=== PATIENT | male | born 1940 ===

== ENCOUNTER 2023-01-04 06:33 | Emergency (ER) | payer MEDICARE, BC ==
[~2023-01-04] VITALS: Ht 167.6 cm; Wt 73.6 kg
[2023-01-04 06:45] VITALS: BP 103/60
--- NOTE | 2023-01-04 06:50 | NUR ---
PER SO PATIENT DROVE FROM [place] TO HIS EX GIRL FRIEND'S HOUSE. EX GIRLFRIEND THEN CONTACTED SO TO BRING PATIENT HERE, PER SO PATEINT IS "FOGGY BRAINED'.
--- NOTE | 2023-01-04 07:04 | NUR ---
CONTACT DIAZ IRBY AT [phone]
[2023-01-04 09:02] LABS: CLARITY,URINE CLEAR (Clear); COLOR,URINE YELLOW (Yellow); GLUCOSE, URINE NEGATIVE (Neg); KETONES,URINE NEGATIVE (Neg); LEUKOCYTE ESTERASE ,URINE NEGATIVE (Neg); NITRITES, URINE NEGATIVE (Neg); OCCULT BLOOD,URINE NEGATIVE (Neg); PH,URINE 5.5 (4.8-8.0); PROTEIN,URINE NEGATIVE (Neg); UROBILINOGEN,URINE 0.2 E.U/dL (0.2-1.0)
[2023-01-04 09:07] LABS: UA COLLECTION TYPE VOIDED
[2023-01-04 09:39] LABS: BASOPHILS # (AUTO) 0.1 X10'3 (0-0.2); BASOPHILS % (AUTO) 0.7 % (0-1); EOSINOPHILS # (AUTO) 0.1 X10'3 (0-0.9); EOSINOPHILS % (AUTO) 0.7 % (0-6); HEMATOCRIT 43.3 % (42.0-52.0); HEMOGLOBIN 14.6 g/dl (14.0-17.9); LYMPHOCYTES # (AUTO) 1.1 X10'3 (1.1-4.8); LYMPHOCYTES % (AUTO) 13.8 % (21-51); MEAN CORPUSCULAR HEMOGLOBIN 31.2 PG (27.0-31.0); MEAN CORPUSCULAR HGB CONC 33.8 g/dL (33.0-36.5); MEAN CORPUSCULAR VOLUME 92.3 FL (78-98); MEAN PLATELET VOLUME 7.1 FL (7.4-10.4); MONOCYTES # (AUTO) 0.7 X10'3 (0-0.9); MONOCYTES % (AUTO) 8.6 % (2-12); NEUTROPHILS # (AUTO) 6.3 X10'3 (1.8-7.7); NEUTROPHILS % (AUTO) 76.2 % (42-75); PLATELET COUNT 159 X10'3 (140-440); RED BLOOD COUNT 4.69 X10'6 (4.70-6.10); RED CELL DISTRIBUTION WIDTH 13.9 % (11.5-14.5); WHITE BLOOD COUNT 8.3 X10'3 (4.5-11.0)
[2023-01-04 09:48] LABS: ALANINE AMINOTRANSFERASE 30 U/L (12-78); ALBUMIN 4.3 G/DL (3.4-5.0); ALBUMIN/GLOBULIN RATIO 1.5 (1.1-1.5); ALKALINE PHOSPHATASE 90 IU/L (46-116); ANION GAP 9 (8-16); ASPARTATE AMINO TRANSFERASE 19 U/L (10-37); BILIRUBIN,TOTAL 0.7 MG/DL (0.1-1.0); BLOOD UREA NITROGEN 32 MG/DL (7-18); BUN/CREATININE RATIO 15.5 (5.4-32.0); CALCIUM 9.4 MG/DL (8.5-10.1); CHLORIDE 109 MMOL/L (99-107); CREATININE 2.07 MG/DL (0.60-1.10); ETHANOL < 0.010 GM/DL (0.0-0.010); GLUCOSE 121 MG/DL (70-104); LIPASE 175 U/L (73-393); POTASSIUM 4.3 MMOL/L (3.5-5.1); SODIUM 142 MMOL/L (135-145); TOTAL CARBON DIOXIDE 24.1 MMOL/L (24-32); TOTAL PROTEIN 7.2 G/DL (6.4-8.2); eGFR 31 ML/MIN
[2023-01-04] MEDS ORDERED: normal saline 1000ML IV soln IVB ONE (09:50)
--- NOTE | 2023-01-04 10:26 | NUR ---
Pt is dc'd, and brother, Bimal, was to pick pt up, however he did not leave his phone number. Nephew Rock's phone number [phone] had a full mail box. He lives in [facility] [place] phone number: [phone] and [phone] lives in [place], and did not respond to either phone number. The 1st number seems to be the working phone number but had no voice mail. Pt is in lobby awaiting brother or nephew's p/u.
--- NOTE | 2023-01-04 10:39 | NUR ---
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 Patient made aware, verbalized understanding.
== END 2023-01-04 13:00 | disposition home or self-care (01) ==
LOC: ER 06:35
DX: G31.84 Mild cognitive impairment of uncertain or unknown etiology (principal); E86.0 Dehydration; N18.32 Chronic kidney disease, stage 3b; I10 Essential (primary) hypertension; F32.A Depression, unspecified; Z98.890 Other specified postprocedural states
CPT/HCPCS: 36415; 70450; 80053; 80320; 81003; 83690; 85025; 99284; J7030